=== PATIENT | female | born 1975 | race Caucasian/White ===

== ENCOUNTER 2024-11-29 08:41 | Outpatient (AMB) | payer OTHER, SELFPAY ==
--- NOTE | 2024-11-29 08:43 | A.OFFPC_ITS ---
Vital Signs 11/29/24 08:56 Height 5 ft 4 in Weight 247 lb 8 oz BMI 42.5 BP 132/60 Blood Pressure Location Rt brachial Position Sitting Respiration 16 Pulse 67 Pulse Source Pulse Oximeter Temp 97.7 F Temp Source Oral Pulse Oximetry (%) 98 Oxygen Delivery Method Room Air Intake Visit Reasons: DISTRIBUTION MANAGER-ANNUAL PE Intake Note: patient here for new patient visit Therapy Aide Required: No Is last menstrual period known: Yes Last menstrual period: 10/18/24 Post menopausal: No Patient : No Allergies No Known Allergies Allergy (Unknown, Verified 11/29/24 08:55) Medication List - Last Reconciled 11/29/24 by Mark Wiggins CNP sertraline 50 mg PO DAILY Tobacco use date assessed: 11/29/24 Dental Screening Dental Screen Date: 11/29/24 Did you have a dental visit in the last 12 months?: Yes Did you have a dental problem in the last 6 months where you did not have access to dental care?: No Was dental information given to patient?: Patient has dentist HPI HPI Comments History of Present Illness Details 49-year-old female presents to establish care Prior PCP? - [facility] Last office visit/CPE/labs - 2022 Acute issue(s) - Depression. She became depressed after her for 29 years left her a year and half ago. She speaks to a therapist, via telehealth, monthly. Her depressive symptoms are generally well controlled. She is on Sertraline 50 mg daily. Her PCP office has been prescribing her Sertraline. Past Medical History - Headaches - Epileptic seizures at childhood - Depression Surgical History - tubal ligation Family History - Dad: DM, bipolar, schizophrenia, MDD - Mom: HTN, HLD - MGM: HTN, HLD Social History - Nonsmoker. Does not vape. Does not dr ink alcohol. Denies recreational drug use - She does not make healthy dietary santana becki; she gained 40-50 lb in the past 2 years. Active but does not exercise. Generally sleep well Health maintenance - Last eye exam was in 2022. She has an manager web application and will schedule an follow up for an eye exam - Last dental visit was last fall - Last tetanus vaccine possible within t he past 5 years. She will review her record and update as needed - She has not had the shingles vaccine; declines vaccination - She has not been vaccinated for pneum onia vaccine; declines vaccination - Has not been vaccinated for the flu ; declines vaccination - Last pap smear test was with Katie Griffiths [facility] in 2022: normal. Will request and review can pusher record, and make changes as needed - Last mammogram was a year ago: normal. Mammogram ordered - She has never had a colonoscopy. Refer red to [facility] gastroenterology for a colonoscopy [facility] Medical History (Updated 11/29/24 @ 09:27 by Mark Wiggins CNP) Headache Epileptic seizures Surgical History (Updated 11/29/24 @ 09:03 by Soila Kign) H/O tubal ligation Family History (Updated 11/29/24 @ 09:02 by Soila King) Brother Asthma Psychiatric disorder Substance abuse Mother High blood pressure High cholesterol Maternal Grandmother High blood pressure High cholesterol Father Diabetes Psychiatric disorder Social History Housing: House Patient Tobacco Use Status: Never used Tobacco e-Cigarette/Vaping Use: Never Used Second Hand Smoke Exposure: No service: No Current occupational status: employed Current occupation: [employer] Current occupational exposures/hazards: No Cognitive needs: No Hearing needs: No Vision needs: No Female Reproductive History Menstrual Date of last menstrual period: 10/18/24 Questionnaire PHQ-9 Over the last 2 weeks, how often have you been bothered by any of the following problems? 1. Little interest or pleasure in doing things: several days 2. Feeling down, depressed, or hopeless: several days 3. Trouble falling or staying asleep, or sleeping too much: several days 4. Feeling tired or having little energy: several days 5. Poor appetite or overeating: several days 6. Feeling bad about yourself - or that you are a failure or have let yourself or your family down: several days 7. Trouble concentrating on things, such as reading the newspaper or watching television: not at all 8. Moving or speaking so slowly that other people could have noticed. Or the opposite - being so fidgety or restless that you have been moving around a lot more than usual: not at all 9. Thoughts that you would be better off or of hurting yourself in some way: not at all Total score: 6 Depression Screening Interpretation: Positive Depression Screening Follow-up: Existing condition and In treatment Depression Screening Done: Yes 51771 - PHQ-9 Billing: Yes Source: Developed by Drs. Daniel Henry, Maria E Lantigua, Herbie Burgos and colleagues, with an educational kellie from [employer]. Thrive Questionnaire Date Thrive assessed: 11/29/24 I am a: Patient What is your living situation today?: I have a steady place to live Within the past 12 months, did the food you bought not last and you didn't have the money to get more?: I choose not to answer this question Within the past 12 months, did you worry whether your food would run out before you got money to buy more?: I choose not to answer this question Do you have trouble paying for medicines?: I choose not to answer this question Do you have trouble getting transportation to medical appointments?: I choose not to answer this question Do you have trouble paying your heating and electricity bill?: I choose not to answer this question Do you have trouble taking care of your child, family member or friend?: No Do you have trouble with day-to-day activities such as bathing, preparing meals, shopping, managing finances, etc.?: No Are you currently unemployed and looking for a job?: No Are you interested in more education?: No Please select the resources that you would like help with: None Currently or been in a relationship where the following occur: I choose not to answer THRIVE Score: 0 AUDIT C Alcohol Use Questionnaire (AUDIT-C) 1. How often do you have a drink containing alcohol?: Never 3. How often do you have six or more drinks on one occasion?: Never Total Score: 0 Score Reviewed/Action Taken: Yes PAT-7 AMB Questionnaire PAT-7 Date PAT - 7 assessed: 11/29/24 Feeling nervous, anxious, or on edge: 0 = Not at all Not being able to stop or control worryin = Not at all Worrying too much about different things: 1 = Several days Trouble relaxin = Not at all Being so restless that it is hard to sit still: 0 = Not at all Becoming easily annoyed or irritable: 0 = Not at all Feeling afraid as if something awful might happen: 0 = Not at all Total PAT-7 score (0-4 normal; 5-9 mild; 10-14 moderate; 15-21 severe): 1 Source: Developed by Maria E DavisW. Grzegorz, Herbie Burgos and colleagues, with an educational kellie from [employer]. PAT-7 Assessment Billing PAT-7 Assessment Tool: PAT-7 Assessment 20970 Review of Systems Const Details: Denies chills, Denies fatigue, Denies fever(s), Denies headache(s) and Denies weakness HEENT Denies change in vision, Denies dizziness, Denies headache(s), Denies hearing loss, Denies nasal congestion, Denies sinus pain, Denies sinus pressure and Denies sore throat Card Denies chest pain, Denies lightheadedness, Denies dyspnea and Denies other (palpitations) Resp Denies cough, Denies dyspnea and Denies wheezing GI Denies abdominal pain, Denies melena, Denies hematochezia, Denies change in bowel habits, Denies dyspepsia and Denies nausea Denies hematuria and Denies dysuria Musc Denies abnormal gait, Denies myalgias, Denies arthralgias, Denies numbness and Denies tingling Skin/Breast Denies rash, Denies unusual bruising and Denies wounds Neuro Denies abnormal gait, Denies dizziness, Denies headache(s), Denies memory loss, Denies numbness, Denies Sensory deficit (Neuro), Denies tingling and Denies weakness Psych Denies anxiety, Denies depression and Denies memory loss Endo Denies cold intolerance, Denies fatigue, Denies heat intolerance, Denies polydipsia and Denies polyuria Say/Lymph Denies easy bleeding and Denies easy bruising Aller/Immun Denies wheezing Physical exam (Primary Care) Vital Signs: Last Vital Signs Temp 97.7 F 11/29/24 08:56 Pulse 67 11/29/24 08:56 Resp 16 11/29/24 08:56 BP 132/60 11/29/24 08:56 Pulse Ox 98 11/29/24 08:56 Oxygen Delivery Method Room Air 11/29/24 08:56 BMI result Body Mass Index 42.5 Tobacco/Smoking Status: Tobacco use Status Tobacco use date assessed 11/29/24 11/29/24 08:53 Patient Tobacco Use Status Never used Tobacco 11/29/24 08:53 e-Cigarette/Vaping Use Never Used 11/29/24 08:53 PHQ-9: PHQ-9 Score PHQ-9: Total score 6 11/29/24 09:03 Depression Screening Interpretation: Positive Depression Screening Follow-up: Existing condition and In treatment Thrive Assessment: Date of Thrive Assessment Date Thrive assessed 11/29/24 11/29/24 08:49 Currently or been in a relationship where the following occur: I choose not to answer Const Other: General: no acute distress, well developed, alert and awake Nutritional Appearance: well nourished Orientation/consciousness: patient oriented x3 [facility] Head: Yes normocephalic and Yes atraumatic Ears: hearing grossly normal bilaterally and TM's normal bilaterally General nose exam: Normal external nose present and Normal nares present Mouth: Normal oral and palatal mucosa present and moist mucous membranes Teeth and gingiva: dentition normal Throat: Yes oropharynx normal Eyes Pupils: Equal, round and reactive pupils present and Pupil accommodation reflex normal EOM: EOMs intact bilaterally Neck Neck: Yes normal visual inspection, Yes no lymphadenopathy and Yes trachea midline Thyroid: Thyroid normal Carotids: no bruits Lymphatic: no lymphadenopathy noted Chest Chest palpation & inspection: normal inspection of the chest Resp Effort & Inspection: normal respiratory effort Auscultation: clear to auscultation bilaterally Cardio Rate: regular rate Rhythm: regular rhythm Heart sounds: S1 normal heart sound present, S2 normal heart sound present, no gallops, no murmurs and no rubs Bruits: no abdominal aortic bruits and no carotid bruits GI Palpation (GI): No Abdominal aortic bruit present, Soft to palpation, nontender, No hepatosplenomegaly present and No Rebound tenderness present Auscultation: normal bowel sounds General: Yes no CVA tenderness Back/Spine/Pelvis Back: no CVA tenderness Cervical Spine: cervical ROM normal and No Cervical spine tenderness Thoracic/Lumbar Spine: thoraco-lumbar ROM normal, No pain with thoraco-lumbar ROM, No thoracic spinal tenderness and No lumbar spinal tenderness Skin General: warm and dry. Normal skin color. Normal skin turgor Lesions: no lesions Rashes: no rashes Trauma: no lacerations or abrasions Wounds: no wounds Nails: normal Neuro General: patient oriented x3, gait normal and CN's II-XI intact bilaterally Cranial nerves: Yes Equal, round and reactive pupils present Cognition (Neuro): normal cognition Gait exam (Neuro): Normal gait present Motor exam (neuro): 5/5 motor strength present throughout Sensory Exam: No Sensory deficit (Neuro) Deep tendon reflexes (DTR's): Right patellar reflex intensity grade: 2+ and Left patellar reflex intensity grade: 2+ Extrem General: Yes normal to inspection, No edema and No calf tenderness Psych Appearance: grossly normal Affect: normal affect Attitude: cooperative Thought process: Normal thought process present Coding Level of Care Code New Pt Prev Care 40-64y(31881) Diagnoses Normal physical examination, routine Z00.00 Major depressive disorder F32.9 Breast cancer screening by mammogram Z12.31 Colon cancer screening Z12.11 Laboratory tests ordered as part of a complete physical exam (CPE) Z00.00 Morbid obesity with BMI of 40.0-44.9, adult E66.01; Z68.41 Vaccine counseling Z71.85 Additional Codes PAT-7 Assessment Billing - PAT-7 Assessment Tool: PAT-7 Assessment 01788 ([id number]) PHQ-9 - 32444 - PHQ-9 Billing: Yes ([id number]) Assessment & Plan Assessment & Plan (1) Normal physical examination, routine: Code(s): Z00.00 - Encounter for general adult medical examination without abnormal findings Category: Medical Plan: No significant functional limitation noted. Perform lab work and follow-up for telehealth visit in 2-3 weeks. Return sooner with symptoms or concerns. Verbalized understanding and agreed with treatment plan. (2) Major depressive disorder: Code(s): F32.9 - Major depressive disorder, single episode, unspecified Category: Medical Plan: Controlled depressive symptoms. PHQ-9 score revealed mild depression. Continue to take sertraline 50 mg daily. Follow-up with therapist as planned. Routine exercise encouraged. Return with worsening or new symptoms. Verbalized understanding and agreed with treatment plan. (3) Breast cancer screening by mammogram: Code(s): Z12.31 - Encounter for screening mammogram for malignant neoplasm of breast Category: Medical Plan: Last mammogram was a year ago: normal. Mammogram ordered. (4) Colon cancer screening: Code(s): Z12.11 - Encounter for screening for malignant neoplasm of colon Category: Medical Plan: She has never had a colonoscopy. Referred to [facility] gastroenterology for a colonoscopy. (5) Laboratory tests ordered as part of a complete physical exam (CPE): Code(s): Z00.00 - Encounter for general adult medical examination without abnormal findings Category: Medical Plan: Fasting labs ordered as part of a complete physical exam. Advised to fast for at least 10 hours before getting labs drawn. May drink water Verbalized understanding and agreed with treatment plan. (6) Morbid obesity with BMI of 40.0-44.9, adult: Code(s): E66.01 - Morbid (severe) obesity due to excess calories; Z68.41 - Body mass index [BMI] 40.0-44.9, adult Category: Medical Plan: She currently weighs 247 lb, BMI is 42.5. She does not make healthy dietary choices and gained 40-50 lb in the past 2 years. Declines referral to supervisor lead refinery or weight management program. She will start making healthy dietary choices and exercising routinely which I encouraged. Follow-up as needed. Verbalized understanding and agreed with the treatment plan. (7) Vaccine counseling: Code(s): Z71.85 - Encounter for immunization safety counseling Category: Medical Plan: She has not been vaccinated for shingles or pneumonia. Instructed on importance of the vaccines and encouraged to get vaccinated. She declines the vaccines. She may get vaccinated from the local pharmacy if she changes her mind. Verbalized understanding and agreed with plan. Orders: Orders Lipid Panel Today Z00.00 - Encounter for general adult medical examination without abnormal findings Complete Blood Count Auto Diff Today Z00.00 - Encounter for general adult medical examination without abnormal findings Comprehensive [place]. Panel Fast Today Z00.00 - Encounter for general adult medical examination without abnormal findings TSH reflex Free T4 Today Z00.00 - Encounter for general adult medical examination without abnormal findings UA CC w/rflx Micro + Cult Today Z00.00 - Encounter for general adult medical examination without abnormal findings Microalbumin, Random (w Creat) Today Z00.00 - Encounter for general adult medical examination without abnormal findings MM screening mammo BI Today Z12.31 - Encounter for screening mammogram for malignant neoplasm of breast Referrals Gastroenterology Referral Z12.11 - Encounter for screening for malignant neoplasm of colon
--- OUTSIDE RECORDS SUMMARY | 2024-11-29 08:48 | XMS_ITS | Clinical Summary ---
Author Organization [facility] Address [address] [place] [address] Care Team Providers Care Muffler Tender Name Role Phone Yvan Mack MD Primary Care Provider [phone] Allergies No known active allergies Medications sertraline (ZOLOFT) 50 mg tablet Take 1 tablet (50 mg total) by mouth 1 (one) time each day. 90 tablet 10/05/2024 Active Active Problems Problem Noted Date Diagnosed Date Varicose veins of both lower extremities 021 Murmur 09/16/2011 Immunizations Name Administration Dates Next Due Td Tetanus diptheria (Tdvax) 7yo and older 04/16 Tdap Tetanus diptheria acell ular pertussis (Boostrix; Adacel) 7yo and older 10/23/2008 Surgical History Surgery Date Site/Laterality Comments TUBAL LIGATION PROCEDURE: HISTORICAL TUBAL LIGATION; COMMENT: also has vasectomy Medical History Medical History Date Comments Epilepsy (CMS/HCC) as a child DX:Epilepsy ( HCC); COMMENT: on meds as child Mixed hyperlipidemia DX:Mixed hy perlipidemia Family History Medical History Relation Name Comments Diabetes Father Hypertension Mother hyperlipidemia No Known Problems Sister Breast cancer Neg Hx Cervical cancer Neg Hx Colon cancer Neg Hx Ovarian cancer Neg Hx Pancreatic cancer Neg Hx Uterine cancer Neg Hx Relation Name Status Comments Brother 1 Alive Healthy Brother 2 Alive Healthy Daughter 1 Alive Daughter 2 Alive Father Alive Maternal Grandfather Emphyse ma-smoker Maternal Grandmother Alive htn Mother Alive borderline hnt Paternal Grandfather ESRD Paternal Grandmother Alive Sister Alive Healthy Son 1 Alive Son 2 Alive Son 3 Alive Social History Tobacco Use Types Packs/Day Years Used Date Smoking Tobacco: Never Smokeless Tobacco: Never Alcohol Use Standard Drinks/Week Comments No 0 (1 standard drink = 0.6 oz pur e alcohol) Comments Unknown Sex and Gender Information Value Date Recorded Sex Assigned at Not on file Legal Sex Female 2:13 PM EST Gender Identity Not on file Sexual Orientation Not on file Obstetrics History Last Filed Vital Signs Vital Sign Reading Time Taken Comments Blood Pressure 128/72 06/29/2024 4:38 PM EDT Pulse 81 06/29/2024 4:38 PM EDT Temperature - - Respiratory Rate - - Oxygen Saturation - - Inhaled Oxygen Concentration - - Weight 104 kg (230 lb) 06/29/2024 4:38 PM EDT Height 162.6 cm (5' 4 ) 06/29/2024 4:38 PM EDT Body Mass Index 39.48 06/29/2024 4:38 PM EDT Plan of Treatment Upcoming Encounters Date Type Department Care Team (Late st Contact Info) Description 12/29/2024 8:00 AM EDT Office Visit Adult Medicine [address] [phone] Yvan Mack MD [address] [place] [id number] Health Maintenance Due Date Last Done Comments Hepatitis B Vaccines (1 of 3 - 19+ 3-dose series) 1993 Colorectal Cancer Screening: Colonoscopy 09/19/2022 Depression Screening 09/19/2022 HIV Screening 09/19/2022 Hepatitis C Screening 09/19/2022 Social Influencers of Health Screening 09/19/2022 COVID-19 Vaccine (1 - 2023- season) 2024 Influenza Vaccine (#1) 2024 Pneumococcal Vaccine: 50+ Years (1 of 1 - PCV) 2024 Zoster Vaccines (1 of 2) 2024 Breast Cancer Screening 04/07/2025 04/07/20 23, 03/26/2023, 03/05/2023, Additional history exists Cervical Cancer Screening: HPV 07/31/2026 07/31/2021 DTaP,Tdap,and Td Vaccines (3 - Td or Tdap) 04/16/2031 04/16/2021, 10/23/2008 HIB Vaccines Aged Out No longer eligi ble based on patient's age to complete this topic HPV Vaccines Aged Out No longer eligi ble based on patient's age to complete this topic Hepatitis A Vaccines Aged Out No long er eligible based on patient's age to complete this topic IPV Vaccines Aged Out No longer eligi ble based on patient's age to complete this topic MMR Vaccines Aged Out No longer eligi ble based on patient's age to complete this topic Meningococcal ACWY Vaccine Aged Out N o longer eligible based on patient's age to complete this topic Meningococcal B Vacine Aged Out No lo nger eligible based on patient's age to complete this topic Pneumococcal Vaccine: Pediatrics (0 to 5 Years) and At-Risk Patients (6 to 64 Years) Aged Out No longer eligible based on patient's age to complete this topic RSV Immunization Patients Under 20 months Aged Out No longer eligible based on patient's age to complete this topic Varicella Vaccines Aged Out No longer eligible based on patient's age to complete this topic Procedures Procedure Name Priority Date/Time Associated Diagnosis Comments DX MAMMO INCL CAD UNI Routine 04/07/2023 1:08 PM EDT Other abnormal and inconclusive findings on diagnostic imaging of breast HPV Routine 07/31/2021 from Last 3 Months or Most Recently Relevant to Health Maintenance Results * DX MAMMO INCL CAD UNI (04/07/2023 1:08 PM EDT) Anatomical Region Laterality Modality Mammography 03/26/2023 2:51 PM EDT Narrative 04/09/2023 2:16 PM EDT EXAM: Ultrasound guided core-needle biopsy of the left breast. HISTORY: Ultrasound-guided biopsy for left breast 1:00 lesion COMPARISON: Left breast ultrasound from 03/26/2023 CONSENT: The time-out, which included the woman's full name, date of , description of the expected procedure and procedure site, was performed immediately before the procedure to confirm woman's identity. Informed consent was obtained. PROCEDURE: An ultrasound guided biopsy was performed for the left breast 1:00 lesion. The patient was placed in the supine position and the lesion was localized using real-time sonography. The skin was prepped in the usual manner and draped. Subcutaneous lidocaine was administered at the expected entry site. Additional subcutaneous anesthesia was provided. A skin marvin was made using a scalpel. A 14-gauge spring breast biopsy needle was advanced to the preselected lesion. 4 core biopsy specimens were obtained and post-fire images documenting needle placement were recorded. Biopsy marker clip was inserted into the biopsy cavity under ultrasound guidance. Postprocedure mammogram demonstrates clip. Following the procedure, the biopsy site was compressed and cleaned. Steri- Strips and sterile gauze were applied and the patient was given post-biopsy instructions. The patient tolerated the procedure well and left the department in good condition. Specimens were placed in formalin and sent for pathologic analysis. Permanent images are saved to PACS. IMPRESSION: IMPRESSION: Successful ultrasound-guided biopsy of a left breast 1:00 lesion SURGICAL PATHOLOGY REPORT DIAGNOSIS: Benign breast tissue with apocrine metaplasia Pathology findings are concordant with imaging findings. BIRADS category 2 - Benign findings RECOMMENDATION: Routine annual screening mammography These findings were discussed with the patient via telephone on 04/09/2023 at 2:15 PM Procedure Note Jonatan Martinez MD - 11/16/2023 EXAM: Ultrasound guided core-needle biopsy of the left breast. HISTORY: Ultrasound-guided biopsy for left breast 1:00 lesion COMPARISON: Left breast ultrasound from 03/26/2023 CONSENT: The time-out, which included the woman's full name, date of ,description of the expected procedure and procedure site, was performed immediately before theprocedure to confirm woman's identity. Informed consent was obtained. PROCEDURE: An ultrasound guided biopsy was performed for the left breast 1:00lesion. The patient was placed in the supine position and the lesion was localizedusing real-time sonography. The skin was prepped in the usual manner and draped. Subcutaneous lidocaine was administered at the expected entry site.Additional subcutaneous anesthesia was provided. A skin marvin was made using a scalpel. A 14-gaugespring breast biopsy needle was advanced to the preselected lesion. 4 core biopsy specimenswere obtained and post-fire images documenting needle placement were recorded. Biopsy marker clip was inserted into the biopsy cavity under ultrasoundguidance. Postprocedure mammogram demonstrates clip. Following the procedure, the biopsy site was compressed and cleaned.Steri-Strips and sterile gauze were applied and the patient was given post-biopsy instructions. The patient tolerated the procedure well and left the department in goodcondition. Specimens were placed in formalin and sent for pathologic analysis. Permanent images are saved to PACS. IMPRESSION: IMPRESSION: Successful ultrasound-guided biopsy of a left breast 1:00 lesion SURGICAL PATHOLOGY REPORT DIAGNOSIS: Benign breast tissue with apocrine metaplasia Pathology findings are concordant with imaging findings. BIRADS category 2 - Benign findings RECOMMENDATION: Routine annual screening mammography These findings were discussed with the patient via telephone on 3at 2:15 PM David Colvin CNM IMG BI PROCEDURES Final Result * Cervical Cancer Screening: HPV (07/31/2021) Cervical Cancer Screening: HPV negative, abstracted Historical Provider HEALTH MAINTENANCE Final Result from Last 3 Months or Most Recently Relevant to Health Maintenance Insurance [facility] Care Teams Muffler Tender Relationship Specialty Start Date End Date Yvan Mack MD [address] [place] [address] PCP - General Internal Medicine 01/27/22
[2024-11-29 08:56] VITALS: BP 132/60; PULSE 67; RESP 16; TEMP 36.5; O2SAT 98; BMI 42.5
== END 2024-11-29 09:25 | disposition home or self-care (01) ==
PROVIDERS: PCP Nurse Practitioner Family; Visit Provider Nurse Practitioner Family
DX: Z00.00 Encounter for general adult medical examination without abnormal findings (principal); F32.9 Major depressive disorder, single episode, unspecified; Z12.31 Encounter for screening mammogram for malignant neoplasm of breast; Z12.11 Encounter for screening for malignant neoplasm of colon; E66.01 Morbid (severe) obesity due to excess calories; Z68.41 Body mass index [BMI] 40.0-44.9, adult; Z71.85 Encounter for immunization safety counseling

== ENCOUNTER → 2024-11-29 08:41 | Outpatient (BNVA) | payer OTHER, SELFPAY | PROVIDERS: PCP Nurse Practitioner Family; Visit Provider Nurse Practitioner Family | DX: Z00.00 Encounter for general adult medical examination without abnormal findings (principal); F32.9 Major depressive disorder, single episode, unspecified; E66.01 Morbid (severe) obesity due to excess calories; Z68.41 Body mass index [BMI] 40.0-44.9, adult; Z79.899 Other long term (current) drug therapy; Z71.85 Encounter for immunization safety counseling | CPT/HCPCS: 96127 ==

== ENCOUNTER 2024-11-29 09:31 | Outpatient (REF) | payer OTHER, SELFPAY ==
--- OUTSIDE RECORDS SUMMARY | 2024-11-29 09:50 | XMS_ITS | Clinical Summary ---
Author Organization [facility] Address [address] [place] [address] Care Team Providers Care Toppiece Chopper Name Role Phone Yvan Mack MD Primary Care Provider [phone] Allergies No known active allergies Medications sertraline [...] 8:00 AM EDT Office Visit Adult Medicine [address] [phone] Yvan Mack MD [address] [place] [phone] Health Maintenance Due Date Last Done Comments [...] Most Recently Relevant to Health Maintenance Insurance [facility] Care Teams Toppiece Chopper Relationship Specialty Start Date End Date Yvan Mack MD [address] [place] [address] PCP - General Internal Medicine 01/27/22
[2024-11-29 11:22] LABS: MANUAL DIFF FLAG NO
[2024-11-29 11:36] LABS: Basophils Percent Auto 0.5 % (0-2); Eosinophils Absolute Auto 0.1 X10*3/uL (0.0-0.4); Eosinophils Percent Auto 2.4 % (0-4); Hematocrit 37.4 % (37.0-47.0); Hemoglobin 12.3 g/dl (12.0-16.0); Imm Gran Abs Auto 0.02 X10*3/uL (0.00-0.03); Imm Gran Pct Auto 0.4 % (0.0-0.4); Lymphocytes Absolute Auto 1.2 X10*3/uL (1.2-4.9); Lymphocytes Percent Auto 21.8 % (20-40); Mean Corpuscular HGB Conc 32.9 g/dl (31.0-35.0); Mean Corpuscular Hemoglobin 27.3 pg (27.0-33.0); Mean Corpuscular Volume 83.1 fL (80.0-98.0); Mean Platelet Volume 9.4 fL (9.4-12.3); Monocytes Absolute Auto 0.4 X10*3/uL (0.1-1.2); Monocytes Percent Auto 7.5 % (2-11); Neutrophils Absolute Auto 3.7 x10*3/uL (2.0-8.3); Neutrophils Percent Auto 67.4 % (45-73); Platelet Count 313 X10*3/uL (160-400); Red Cell Distribution Width 13.5 % (11.0-16.0); White Blood Count 5.5 X10*3/uL (4.8-10.8)
[2024-11-29 12:03] LABS: Alanine Aminotransferase 24 U/L (0-31); Albumin Level 3.9 g/dL (3.5-5.0); Alkaline Phosphatase 70 U/L (39-117); Anion Gap 10 (12-20); Aspartate Amino Transferase 24 U/L (5-31); Bilirubin Total 0.3 mg/dL (0.0-1.0); Blood Urea Nitrogen 11 mg/dL (9-16); Calcium 8.7 mg/dL (8.4-10.2); Carbon Dioxide 27 mmol/L (22-29); Chloride 107 mmol/L (96-108); Cholesterol 239 mg/dL (<200); Estimated Glomerular Filt Rate > 60; Glucose Fasting 95 mg/dL (60-99); HDL Cholesterol 51 mg/dL (>40); LDL Cholesterol Calculated 144 mg/dL (<100); Potassium 4.1 mmol/L (3.3-5.1); Sodium 140 mmol/L (135-145); Total Protein 7.1 g/dL (6.5-8.0); Triglycerides 221 mg/dL (<150)
[2024-11-29 12:08] LABS: TSH reflex Free T4 1.67 uIU/mL (0.32-4.0)
[2024-11-29 14:15] LABS: Appearance Urine Clear; Color Urine Yellow; Glucose Urine UA Negative (Negative); Leukocyte Esterase Urine Negative (Negative); Nitrite Urine Negative (Negative); Urine Blood Negative (Negative); Urine Ketones Negative (Negative); Urine Protein Negative (Neg-Trace)
[2024-11-29 14:49] LABS: Creatinine Urine 57.76 mg/dL; Microalbumin Urine < 5.0 mg/L
== END 2024-11-29 09:32 | disposition home or self-care (01) ==
LOC: HO.WFDLDS 09:31
PROVIDERS: Visit Provider Nurse Practitioner Family
DX: Z00.00 Encounter for general adult medical examination without abnormal findings (principal); Z13.220 Encounter for screening for lipoid disorders; Z13.29 Encounter for screening for other suspected endocrine disorder; Z13.9 Encounter for screening, unspecified; Z13.0 Encounter for screening for diseases of the blood and blood-forming organs and certain disorders involving the immune mechanism
CPT/HCPCS: 36415; 80053; 80061; 81003; 82570; 84443; 85025

== ENCOUNTER 2024-12-20 14:16 | Outpatient (AMB) | payer OTHER, SELFPAY ==
--- NOTE | 2024-12-20 13:44 | MHC.PC.OV ---
Intake Visit Reasons: telehealth lab review Intake Note: patient here for telehealth visit for lab review. Brassiere Cup Mold Cutter Required: No Allergies No Known Allergies Allergy (Unknown, Verified 12/20/24 13:45) Tobacco use date assessed: 12/20/24 Dental Screening Dental Screen Date: 12/20/24 Did you have a dental visit in the last 12 months?: Yes Did you have a dental problem in the last 6 months where you did not have access to dental care?: No Was dental information given to patient?: Patient has dentist HPI HPI Comments History of Present Illness Details 49-year-old female presents for a telehealth visit for review recent lab results. She admits to taking sertraline as prescribed without adverse reactions. She offers no complaints and denies acute symptoms at this time. [facility] Medical History (Updated 12/20/24 @ 14:26 by Mark Wiggins CNP) Headache Epileptic seizures Surgical History (Updated 11/29/24 @ 09:03 by Soila King MA) H/O tubal ligation Family History (Updated 11/29/24 @ 09:02 by Soila King MA) Brother Asthma Psychiatric disorder Substance abuse Mother High blood pressure High cholesterol Maternal Grandmother High blood pressure High cholesterol Father Diabetes Psychiatric disorder Social History Housing: House Patient Tobacco Use Status: Never used Tobacco e-Cigarette/Vaping Use: Never Used Second Hand Smoke Exposure: No service: No Current occupational status: employed Current occupation: [employer] Current occupational exposures/hazards: No Cognitive needs: No Hearing needs: No Vision needs: No Questionnaire Thrive Questionnaire Date Thrive assessed: 11/28/24 I am a: Patient What is your living situation today?: I have a steady place to live Within the past 12 months, did the food you bought not last and you didn't have the money to get more?: I choose not to answer this question Within the past 12 months, did you worry whether your food would run out before you got money to buy more?: I choose not to answer this question Do you have trouble paying for medicines?: I choose not to answer this question Do you have trouble getting transportation to medical appointments?: I choose not to answer this question Do you have trouble paying your heating and electricity bill?: I choose not to answer this question Do you have trouble taking care of your child, family member or friend?: No Do you have trouble with day-to-day activities such as bathing, preparing meals, shopping, managing finances, etc.?: No Are you currently unemployed and looking for a job?: No Are you interested in more education?: No Please select the resources that you would like help with: None Currently or been in a relationship where the following occur: I choose not to answer THRIVE Score: 0 PAT-7 AMB Questionnaire PAT-7 Date PAT - 7 assessed: 11/29/24 Source: Developed by Drs. Daniel Henry, Maria E Lantigua, Herbie Burgos and colleagues, with an educational kellie from [employer]. Review of Systems Const Details: Denies chills, Denies fatigue, Denies fever(s), Denies headache(s) and Denies weakness Cardiac Denies chest pain, Denies claudication, Denies leg edema, Denies lightheadedness, Denies palpitations, Denies dyspnea, Denies dyspnea on exertion, Denies orthopnea and Denies other (Loss of consciousness) Resp Denies cough, Denies excessive phlegm production, Denies dyspnea, Denies dyspnea on exertion, Denies snoring and Denies wheezing Physical exam (Primary Care) Tobacco/Smoking Status: Tobacco use Status Tobacco use date assessed 12/20/24 12/20/24 13:48 Patient Tobacco Use Status Never used Tobacco 12/20/24 13:48 e-Cigarette/Vaping Use Never Used 12/20/24 13:48 Thrive Assessment: Date of Thrive Assessment Date Thrive assessed 11/28/24 12/20/24 13:48 Currently or been in a relationship where the following occur: I choose not to answer Const Other: Alert and oriented x3 Telehealth Telehealth Telehealth Platform: Telephone Location of provider rendering services: practice address Location of patient: address on file Patient Identification confirmed using: Name, : Yes Telehealth method: voice only Patient verbally consented to treatment: Yes Patient verbally consented to billing insurance company: Yes Patient informed of any privacy concerns related to visit: Yes Coding Level of Care Code Tele Est Pt Level 3 (23874) Diagnoses Hyperlipidemia E78.5 Time Spent (min) 10 Assessment & Plan Assessment & Plan (1) Hyperlipidemia: Code(s): E78.5 - Hyperlipidemia, unspecified Category: Medical Plan: Recent triglyceride, total cholesterol, and LDL levels are elevated, 221, 239, and 144 respectively, HDL level is normal, 51. Advised to limit foods high in saturated fat and avoid foods high in trans fat. Routine exercise encouraged. Fast for 10-12 hours, may drink water, and perform lipid panel blood work 2-3 days before next visit. Follow-up in 2 months for hyperlipidemia and depression. Return sooner with symptoms or concerns. Verbalized understanding and agreed with treatment plan. Orders: Orders Lipid Panel 2 Months E78.5 - Hyperlipidemia, unspecified
--- OUTSIDE RECORDS SUMMARY | 2024-12-20 16:49 | XMS_ITS | Clinical Summary ---
Author Organization [facility] Address [address] [place] [address] Care Team Providers Care Detective Bowling Alley Name Role Phone Yvan Mack MD Primary Care Provider [phone]- [phone] Allergies No known active allergies Medications sertraline [...] AM EDT Office Visit Adult Medicine [address] [phone] Yvan Mack MD [address] [place] [id number] Health Maintenance Due Date Last Done Comments [...] Most Recently Relevant to Health Maintenance Insurance [facility] Care Teams Detective Bowling Alley Relationship Specialty Start Date End Date Yvan Mack MD [address] [place] [address] PCP - General Internal Medicine 01/27/22
== END 2024-12-20 14:34 | disposition home or self-care (01) ==
LOC: HO.HMCFM 14:16
PROVIDERS: PCP Nurse Practitioner Family; Visit Provider Nurse Practitioner Family
DX: E78.5 Hyperlipidemia, unspecified (principal)

== ENCOUNTER → 2024-12-20 14:16 | Outpatient (BNVA) | payer OTHER, SELFPAY | PROVIDERS: PCP Nurse Practitioner Family; Visit Provider Nurse Practitioner Family ==

== ENCOUNTER 2025-02-06 07:37 | Outpatient (REF) | payer OTHER, SELFPAY | END 2025-02-06 07:38 | disposition home or self-care (01) | LOC: HO.MAMMO 07:37 | PROVIDERS: PCP Nurse Practitioner Family; Visit Provider Nurse Practitioner Family | DX: Z12.31 Encounter for screening mammogram for malignant neoplasm of breast (principal) | CPT/HCPCS: 77063; 77067 ==

== ENCOUNTER → 2025-02-06 07:45 | Outpatient (BNV) | payer OTHER, SELFPAY | PROVIDERS: PCP Nurse Practitioner Family; Visit Provider Internal Medicine | DX: Z12.31 Encounter for screening mammogram for malignant neoplasm of breast (principal) | CPT/HCPCS: 77063; 77067 ==

== ENCOUNTER 2025-04-12 09:05 | Outpatient (AMB) | payer OTHER, SELFPAY ==
--- NOTE | 2025-04-12 09:08 | MHC.OFFVIS ---
Vital Signs 04/12/25 09:12 Height 5 ft 4 in Weight 250 lb BMI 42.9 BP 138/66 Blood Pressure Location Rt brachial Position Sitting Pulse 62 Pulse Source Pulse Oximeter Pulse Oximetry (%) 96 Oxygen Delivery Method Room Air Intake Visit Reasons: Colonoscopy Screening Intake Note: New pt for initial colo screening. CC; Pt denies any GI sx or concerns at this time. No pertinent FMHx. Etl Manager Required: No Accompanied by: Self / Same As Patient Allergies No Known Allergies Allergy (Unknown, Verified 04/12/25 09:08) HPI HPI Colonoscopy Screening: Details: 49-year-old female here for preprocedural meeting to discuss a screening colonoscopy. She is referred by Mark Wiggins. PMX Morbid obesity Epilepsy - in childhood no longer a problem High cholesterol Depression Headaches * SURGICAL HISTORY Tubal ligation * ALLERGIES: NKDA * [facility] LABS: Laboratory Tests 11/29/24 09:32 WBC 5.5 Hgb 12.3 Hct 37.4 Plt Count 313 Estimated GFR > 60 Total Bilirubin 0.3 AST 24 ALT 24 Alkaline Phosphatase 70 TSH 1.67 TODAY'S VISIT This is her first colonoscopy. She denies any bowel or upper GI problems. She denies any cardiac or respiratory problems. No anes or sed problems. No ID problems. Her mother and father had colon polyps but no known CRC. [facility] Medical History Headache Epileptic seizures Surgical History H/O tubal ligation Family History Brother Asthma Psychiatric disorder Substance abuse Mother High blood pressure High cholesterol Maternal Grandmother High blood pressure High cholesterol Father Diabetes Psychiatric disorder Social History Housing: House Patient Tobacco Use Status: Never used Tobacco e-Cigarette/Vaping Use: Never Used Second Hand Smoke Exposure: No service: No Current occupational status: employed Current occupation: [employer] Current occupational exposures/hazards: No Cognitive needs: No Hearing needs: No Vision needs: No Review of Systems Const Denies fatigue, Denies fever(s), Denies night sweats, Denies poor appetite and Denies weight loss ENT Reports Normal hearing present, Denies dental pain, Denies dysphagia, Denies hearing loss, Denies mouth pain, Denies odynophagia, Denies throat swelling, Denies tongue swelling and Reports other (Dentition adequate) Card Reports no additional complaints Resp Reports no additional complaints GI Details: Denies abdominal pain, Denies melena, Denies bloating, Denies hematochezia, Denies constipation, Denies GI cramping, Denies dysphagia, Denies excessive flatus, Denies early satiety, Denies heartburn, Denies diarrhea, Denies nausea, Denies odynophagia, Denies vomiting and Denies hematemesis Skin/Breast Denies pruritus, Denies lesions, Denies rash and Denies jaundice Neuro Reports Normal hearing present and Denies Abnormal speech present Endo Denies fatigue Aller/Immun Denies throat swelling and Denies tongue swelling Physical Exam Const General: cooperative, no acute distress, well developed and well groomed Nutritional Appearance: well nourished and obese morbidly obese Orientation/consciousness: oriented to person, oriented to place and oriented to time Limitations: No language barrier HEENT Head: Yes normocephalic and Yes atraumatic Eyes General: appearance normal, both eyes and all related structures Pupils: Equal, round and reactive pupils present Neck Neck: Yes normal visual inspection and Yes no lymphadenopathy Thyroid: Thyroid normal Resp Effort & Inspection: normal respiratory effort and able to speak in complete sentences Auscultation: clear to auscultation bilaterally Cardio Rate: regular rate Rhythm: regular rhythm Heart sounds: Normal, physiologic split S2 sound present Peripheral pulses: radial pulses present and posterior tibial pulses present GI Inspection: No distended, Yes Abdominal panniculus present, Yes obesity, Yes scar and Yes striae Palpation (GI): Soft to palpation, nontender, no guarding, not rigid and No hepatosplenomegaly present Percussion: Yes normal to percussion Auscultation: normal bowel sounds Rectal Exam - Female: deferred Abdomen image:  1. surgical scar Skin General skin exam: no rashes or lesions noted, turgor normal, skin not dry, no jaundice, No spider nevi and no striae Rashes: no rashes Nails: normal Neuro General: oriented to person, oriented to place and oriented to time Cranial nerves: Yes Equal, round and reactive pupils present and Yes Normal hearing present Speech: No Abnormal speech present Extrem General: Yes normal to inspection, No clubbing, No cyanosis and No edema Psych Appearance: grossly normal and well kempt Mental Status: mental status grossly normal Speech and movement: Normal speech and movement present Affect: normal affect Attitude: cooperative Thought process: Normal thought process present and not confabulating Thought content: Normal thought content present Insight: Good insight present (Psych) Judgement: Good judgement present (Psych) Assessment & Plan Assessment & Plan (1) Epileptic seizures: Code(s): G40.909 - Epilepsy, unspecified, not intractable, without status epilepticus Category: Medical Plan: In childhood only patient says this has not been a recent problem (2) Morbid obesity with BMI of 40.0-44.9, adult: Code(s): E66.01 - Morbid (severe) obesity due to excess calories; Z68.41 - Body mass index [BMI] 40.0-44.9, adult Category: Medical (3) Pre-op examination: Code(s): Z01.818 - Encounter for other preprocedural examination Category: Medical Plan This is her first colonoscopy. She denies any bowel or upper GI problems. She denies any cardiac or respiratory problems. No anes or sed problems. No ID problems. Her mother and father had colon polyps but no known CRC. Orders: Orders Colonoscopy - GI Use Only Today E66.01 - Morbid (severe) obesity due to excess calories, G40.909 - Epilepsy, unspecified, not intractable, without status epilepticus, Z01.818 - Encounter for other preprocedural examination, Z68.41 - Body mass index [BMI] 40.0-44.9, adult Medications: New bisacodyl (Dulcolax (bisacodyl)) 10 mg (2 x 5 mg) PO BEDTIME 4 tabs 0RF 2 days peg 3350-electrolytes 236-22.74-6.74 -5.86 gram (Golytely) until fecal effluent is clear; do not exceed a total volume of 2,000 mL 240 mL PO Q10M 4,000 mL 0RF 1 day Z12.11 - Encounter for screening for malignant neoplasm of colon Coding Level of Care Code New Pt Level 3 (66058) Diagnoses Epileptic seizures G40.909 Morbid obesity with BMI of 40.0-44.9, adult E66.01; Z68.41 Pre-op examination Z01.818
[2025-04-12 09:12] VITALS: BP 138/66; PULSE 62; O2SAT 96; BMI 42.9
== END 2025-04-12 09:30 | disposition home or self-care (01) ==
LOC: HO.HGI 09:05
PROVIDERS: PCP Nurse Practitioner Family; Visit Provider Nurse Practitioner
DX: Z01.818 Encounter for other preprocedural examination (principal); E66.01 Morbid (severe) obesity due to excess calories; Z68.41 Body mass index [BMI] 40.0-44.9, adult; Z12.11 Encounter for screening for malignant neoplasm of colon; G40.909 Epilepsy, unspecified, not intractable, without status epilepticus
CPT/HCPCS: S0285

== ENCOUNTER 2025-04-23 12:42 | Outpatient (AMB) | payer OTHER, SELFPAY ==
--- NOTE | 2025-04-23 12:45 | MHC.PC.OV ---
Vital Signs 04/23/25 12:49 Height 5 ft 4 in Weight 253 lb 6 oz BMI 43.5 BP 132/68 Blood Pressure Location Lt brachial Position Sitting Respiration 16 Pulse 57 Pulse Source Pulse Oximeter Temp 98.0 F Temp Source Oral Pulse Oximetry (%) 99 Oxygen Delivery Method Room Air Intake Visit Reasons: Pain Back of her Ankles Intake Note: patient here c/o pain in back of both of her ankles Alloy Weigher Required: No Is last menstrual period known: Yes Last menstrual period: 03/30/25 Post menopausal: No Patient : No Allergies No Known Allergies Allergy (Unknown, Verified 04/23/25 13:02) Medication List - Last Reconciled 04/23/25 by Mark Wiggins CNP bisacodyl (Dulcolax (bisacodyl)) 10 mg (2 x 5 mg) PO BEDTIME 2 days peg 3350-electrolytes 236-22.74-6.74 -5.86 gram (Golytely) 240 mL PO Q10M 1 day sertraline 50 mg PO DAILY 30 days Tobacco use date assessed: 04/23/25 Dental Screening Dental Screen Date: 04/23/25 Did you have a dental visit in the last 12 months?: No Did you have a dental problem in the last 6 months where you did not have access to dental care?: No Was dental information given to patient?: Patient has dentist HPI HPI Comments History of Present Illness Details 49-year-old female presents with complaints of intermittent pain to the the back of both ankles which has been ongoing for the past 7 months. She describes the pain as excruciating, tight, aching, as if someone is pulling a rubber band. She as tried multiple otc regimen ice, heat, stretching, rest, elevation, Epson salt soaks, tylenol, and advil without relief. Intensifies with walking. She denies fall, injury, or trauma. [facility] Medical History Normal physical examination, routine Laboratory tests ordered as part of a complete physical exam (CPE) Vaccine counseling Breast cancer screening by mammogram Colon cancer screening Headache Epileptic seizures Surgical History H/O tubal ligation Family History Brother Asthma Psychiatric disorder Substance abuse Mother High blood pressure High cholesterol Maternal Grandmother High blood pressure High cholesterol Father Diabetes Psychiatric disorder Social History Housing: House Patient Tobacco Use Status: Never used Tobacco e-Cigarette/Vaping Use: Never Used Second Hand Smoke Exposure: No Patient : No service: No Current occupational status: employed Current occupation: [employer] Current occupational exposures/hazards: No Cognitive needs: No Hearing needs: No Vision needs: No Female Reproductive History Menstrual Date of last menstrual period: 03/30/25 Questionnaire PHQ-9 Over the last 2 weeks, how often have you been bothered by any of the following problems? 2. Feeling down, depressed, or hopeless: not at all 3. Trouble falling or staying asleep, or sleeping too much: not at all 4. Feeling tired or having little energy: not at all 5. Poor appetite or overeating: several days 6. Feeling bad about yourself - or that you are a failure or have let yourself or your family down: not at all 7. Trouble concentrating on things, such as reading the newspaper or watching television: not at all 8. Moving or speaking so slowly that other people could have noticed. Or the opposite - being so fidgety or restless that you have been moving around a lot more than usual: not at all 9. Thoughts that you would be better off or of hurting yourself in some way: not at all Source: Developed by Drs. Daniel Henry, Maria E Lantigua, Herbie Burgos and colleagues, with an educational kellie from [email or web address]. Thrive Questionnaire Date Thrive assessed: 11/28/24 I am a: Patient What is your living situation today?: I have a steady place to live Within the past 12 months, did the food you bought not last and you didn't have the money to get more?: I choose not to answer this question Within the past 12 months, did you worry whether your food would run out before you got money to buy more?: I choose not to answer this question Do you have trouble paying for medicines?: I choose not to answer this question Do you have trouble getting transportation to medical appointments?: I choose not to answer this question Do you have trouble paying your heating and electricity bill?: I choose not to answer this question Do you have trouble taking care of your child, family member or friend?: No Do you have trouble with day-to-day activities such as bathing, preparing meals, shopping, managing finances, etc.?: No Are you currently unemployed and looking for a job?: No Are you interested in more education?: No Please select the resources that you would like help with: None Currently or been in a relationship where the following occur: I choose not to answer THRIVE Score: 0 PAT-7 AMB Questionnaire PAT-7 Date PAT - 7 assessed: 11/29/24 Source: Developed by Drs. Daniel Henry, Maria E Lantigua, Herbie Burgos and colleagues, with an educational kellie from [email or web address]. Review of Systems Const Details: Const Denies chills, Denies fatigue, Denies fever(s), Denies headache(s) and Denies weakness ENT Denies dizziness and Denies headache(s) Card Denies chest pain, Denies lightheadedness, Denies dyspnea and Denies other (Palpitations) Resp Denies cough, Denies dyspnea, Denies wheezing and Denies other ( shortness of breath) GI Denies abdominal pain, Denies melena, Denies hematochezia, Denies change in bowel habits, Denies dyspepsia and Denies nausea Denies hematuria and Denies dysuria Musc Reports as per HPI Skin/Breast Denies rash, Denies unusual bruising and Denies wounds Neuro Denies abnormal gait, Denies dizziness, Denies headache(s), Denies memory loss, Denies numbness, Denies Sensory deficit (Neuro), Denies tingling and Denies weakness Psych Denies anxiety, Denies depression, Denies memory loss Endo Denies cold intolerance, Denies fatigue, Denies heat intolerance, Denies polydipsia and Denies polyuria Aller/Immun Denies wheezing Physical exam (Primary Care) Vital Signs: Last Vital Signs Temp 98.0 F 04/23/25 12:49 Pulse 57 04/23/25 12:49 Resp 16 04/23/25 12:49 BP 132/68 04/23/25 12:49 Pulse Ox 99 04/23/25 12:49 Oxygen Delivery Method Room Air 04/23/25 12:49 BMI result Body Mass Index 43.5 Tobacco/Smoking Status: Tobacco use Status Tobacco use date assessed 04/23/25 04/23/25 12:53 Patient Tobacco Use Status Never used Tobacco 04/23/25 12:45 e-Cigarette/Vaping Use Never Used 04/23/25 12:45 Thrive Assessment: Date of Thrive Assessment Date Thrive assessed 11/28/24 04/23/25 12:45 Currently or been in a relationship where the following occur: I choose not to answer Const Other: General: no acute distress and well developed Nutritional Appearance: well nourished Orientation/consciousness: patient oriented x3 HENMT Head: Yes normocephalic and Yes atraumatic Eyes General: appearance normal, both eyes and all related structures Pupils: Equal, round and reactive pupils present EOM: EOMs intact bilaterally Resp Effort & Inspection: normal respiratory effort Auscultation: clear to auscultation bilaterally Cardio Rate: regular rate Rhythm: regular rhythm Heart sounds: S1 normal heart sound present, S2 normal heart sound present, no gallops, no murmurs and no rubs GI Palpation (GI): No Abdominal aortic bruit present, Soft to palpation, nontender, No hepatosplenomegaly present and No Rebound tenderness present Auscultation: normal bowel sounds General: Yes no CVA tenderness Back/Spine/Pelvis Back: no CVA tenderness Cervical Spine: cervical ROM normal and No Cervical spine tenderness Thoracic/Lumbar Spine: thoraco-lumbar ROM normal, No pain with thoraco-lumbar ROM, No thoracic spinal tenderness and No lumbar spinal tenderness Extrem General: Yes normal to inspection, and No calf tenderness. Tenderness to palpation of the Achilles tendons of both feet, erythema, edema, or overt injury or trauma Skin General: warm and dry. Normal skin color. Normal skin turgor Neuro General: patient oriented x3, gait normal and no focal neuro deficit Cranial nerves: Yes Equal, round and reactive pupils present Cognition (Neuro): normal cognition Gait exam (Neuro): Normal gait present Sensory Exam: No Sensory deficit (Neuro) Psych Appearance: grossly normal Affect: normal affect Attitude: cooperative Thought process: Normal thought process present Coding Level of Care Code Est Pt Level 4 (83805) Diagnoses Achilles tendinitis of both lower extremities M76.61; M76.62 Assessment & Plan Assessment & Plan (1) Achilles tendinitis of both lower extremities: Code(s): M76.61 - Achilles tendinitis, right leg; M76.62 - Achilles tendinitis, left leg Category: Medical Plan: 49-year-old female presents with complaints of intermittent pain to the the back of both ankles which has been ongoing for the past 7 months. She describes the pain as excruciating, tight, aching, as if someone is pulling a rubber band. She as tried multiple otc regimen ice, heat, stretching, rest, elevation, Epson salt soaks, tylenol, and advil without relief. Intensifies with walking. She denies fall, injury, or trauma. Tenderness to palpation of the Achilles tendons of both feet, erythema, edema, or overt injury or trauma. Negative Benavidez test. Naproxen 500 mg twice daily as needed ordered; advised to take as prescribed and with food. Instructed on the risks, benefits, and potential adverse reactions of the medication. Ultrasound of both feet ordered. Will review results and make changes as needed. May referred to Ortho or PT. Follow-up for hyperlipidemia and MDD as planned. Return sooner with worsening or new symptoms. Verbalized understanding and agreed with the plan. Orders: Orders US Extremity Nonvas Limited LT Today M76.61 - Achilles tendinitis, right leg, M76.62 - Achilles tendinitis, left leg US Extremity Nonvas Limited RT Today M76.61 - Achilles tendinitis, right leg, M76.62 - Achilles tendinitis, left leg Medications: New naproxen Take with food 500 mg PO BID PRN 30 tabs 1RF pain
[2025-04-23 12:49] VITALS: BP 132/68; PULSE 57; RESP 16; TEMP 36.7; O2SAT 99; BMI 43.5
== END 2025-04-23 16:19 | disposition home or self-care (01) ==
LOC: HO.HMCFM 12:43
PROVIDERS: PCP Nurse Practitioner Family; Visit Provider Nurse Practitioner Family
DX: M76.61 Achilles tendinitis, right leg (principal); M76.62 Achilles tendinitis, left leg

== ENCOUNTER 2025-06-12 15:46 | Outpatient (REF) | payer OTHER, SELFPAY ==
--- NOTE | ~2025-06-12 | US_ITS ---
EXAMINATION: Bilateral limited ultrasound nonvascular extremity. CLINICAL INDICATION: Bilateral Achilles tendinitis COMPARISON: None. TECHNIQUE: Limited imaging through bilateral echoless tendons were performed. FINDINGS: Bilateral Achilles tendinitis symmetrical in thickness and echotexture. There is normal insertion on the retrocalcaneal. No fluid collection is seen in along the course of the Achilles tendon or at the insertion site to suspect any tendinitis. However there is mild increased activity seen in the distal right Achilles tendon may represent intratendinous inflammatory process. The left Achilles tendon has normal vascular flow. Electronically signed by: Mamadou Owen MD 06/12/2025 04:59 PM EDT
--- OUTSIDE RECORDS SUMMARY | 2025-06-12 16:39 | XMS_ITS ---
Author Name [facility] Organization Unknown Care Team Organization Name Specialty Phone Email Start Date End Da te [facility] 08/18/2022 05/29/2024
== END 2025-06-12 15:47 | disposition home or self-care (01) ==
LOC: HO.US 15:46
PROVIDERS: PCP Nurse Practitioner Family; Visit Provider Nurse Practitioner Family
DX: M76.61 Achilles tendinitis, right leg (principal); M76.62 Achilles tendinitis, left leg
CPT/HCPCS: 76882

== ENCOUNTER → 2025-06-12 15:50 | Outpatient (BNV) | payer OTHER, SELFPAY | PROVIDERS: PCP Nurse Practitioner Family; Visit Provider Radiology Diagnostic Radiology | DX: M76.62 Achilles tendinitis, left leg (principal); M76.61 Achilles tendinitis, right leg | CPT/HCPCS: 76882 ==